=== PATIENT | female | born 1970 | race Caucasian/White ===

== ENCOUNTER 2016-06-30 07:44 | Day surgery (SDC) | payer OTHER ==
[2016-06-30 08:54] VITALS: BMI 22.4
[2016-06-30 09:17] VITALS: O2SAT 100
[2016-06-30] MEDS ORDERED: Propofol 10 mg/ml Inj (20 ML) ONE ×3 (10:42→11:08)
[2016-06-30] MEDS ORDERED: Lidocaine Hydrochloride 5 ML INJ ONE (10:42)
--- NOTE | 2016-06-30 10:44 | CP.SDSHP ---
Same Day Surgery H & P - History Proposed Procedure: COLONSCOPY Pre-Op Diagnosis: SEE NOTES - Previous Medical/Surgical History Endocrine/Metabolic: Other Misc: Other Pain: 4.Moderate Pain Previous Surgical History: HX. OF COLON POLYPS - Allergies Allergies: Allergies No Known Allergies Allergy (Verified 07/26/14 07:40) - Physical Exam General Appearance: N Vital Signs: Vital Signs 06/30/16 09:07 Temperature 98.2 F Pulse Rate 80 Respiratory 16 Rate Blood Pressure 122/73 O2 Sat by Pulse 100 Oximetry Mental Status: Alert & Oriented x3 Neuro: WNL Heart: WNL Lungs: WNL GI: Other - {Optional Preform as Required} Breast: WNL Abdomen: Other Rectal: Other Integument: WNL : WNL Ortho: WNL ENT: WNL - Impression Pt. Evaluated Today:Candidate for Anesthesia & Procedure: Yes - Date & Time Time: 10:43 Short Stay Discharge - Short Stay Discharge Admitting Diagnosis/Reason for Visit: RECTAL BLEEDING / COLON POLYP Disposition: HOME/ ROUTINE
[2016-06-30] MEDS ORDERED: Belladonna-Phenobarbital PO STA ×2 (10:46→11:51)
[2016-06-30] MEDS ORDERED: Glucagon Recombinant 1 mg Inj ONE (10:59)
[2016-06-30] MEDS ORDERED: Phytonadione 10 mg/ml Inj (Adult) SC STA (11:11)
[2016-06-30 14:34] VITALS: TEMP 98.6
[2016-06-30 14:43] VITALS: BP 98/63; PULSE 72; RESP 18
== END 2016-06-30 12:30 | disposition home or self-care (01) ==
LOC: C.ENDO 07:44
PROVIDERS: ATTEND Specialist
DX: D12.4 Benign neoplasm of descending colon (principal); K58.9 Irritable bowel syndrome, unspecified; K64.8 Other hemorrhoids; K62.5 Hemorrhage of anus and rectum
CPT/HCPCS: 45385; 84703; 88305; J1610; J2704; J3430